=== PATIENT | male | born 1995 | race Caucasian/White ===

== ENCOUNTER 2019-10-06 00:05 | Emergency (ER) | payer SELFPAY ==
--- NOTE | 2019-10-06 00:06 | XR_ITS ---
WS: [id number] Chest 2 views, 10/06/2019 Clinical Data: cp Comparison: PA chest, 12/07/2017. Findings: No nodules, masses or effusions are seen. The heart is normal. The pulmonary vascularity is not increased. No pneumonia or pneumothorax is seen. XR/XR chest 2V* 18113 Impression: Negative chest.
--- NOTE | 2019-10-06 00:06 | ECG_ITS ---
Measurements Intervals [place] Rate: 64 P: 60 RI: 161 QRS: -25 QRSD: 95 T: 45 QT: 363 QTc: 377 SINUS RHYTHM BORDERLINE LEFT AXIS DEVIATION [QRS AXIS < -20] No previous ECG available for comparison Electronically Signed On 10-07-2019 8:59:43 CDT by Adam Rodgers M.D. [id number]
[2019-10-06 00:17] VITALS: BP 145/96; PULSE 71; RESP 16; TEMP 36.6; O2SAT 100; BMI 30.2
--- NOTE | 2019-10-06 01:51 | ED_ITS ---
Entered by April Noyola, acting as scribe for Vasquez Lynch MD HPI - Chest Pain General: Chief Complaint: Chest Pain Stated Complaint: CP Time Seen by Provider: 10/06/19 01:51 Source: patient Mode of arrival: ambulatory Limitations: no limitations History of Present Illness: HPI narrative: 24 yo m came to the er pov for chest pain. Onset was 2 days ago. Pt states that he is having a sharp and dull pain. Pain is located in the center of the chest. No nausea, vomiting or shortness of breath. This has been going on for 2 days. Pt rates his pain as a 7/10. complaint: chest pain Onset (ago): day(s) (2 days ago) Timing of current episode: episodic Prior episodes: No Onset: during rest Pain location: right chest Pain radiation: none Severity: mild Pain scale (0-10): 7 Quality: sharp and dull Relieving factors: rest Exacerbating factors: nothing Associated symptoms: Reports no associated symptoms; Deny abdominal pain, dyspnea, fever(s), nausea or vomiting Risk Factors: Coronary artery disease risk factors: none Review of Systems General: Reports: other (negative unless marked) Const: Denies: fever, chills, body aches or change in appetite Eyes: Denies: blurry vision or eye discomfort ENMT: Denies: throat pain or dental pain Card: Reports: chest pain Resp: Denies: shortness of breath GI: Denies: abdominal pain, nausea, vomiting or diarrhea : Denies: painful urination Musc: Denies: neck pain or back pain Skin/Breast: Denies: rash Neuro: Denies: headache Psych: Denies: depression Vikas/Lymph: Denies: easy bruising All/Imm: Denies: hives PFSH ED PFSH: Medical History Major depressive disorder, recurrent, moderate Post-traumatic stress disorder, unspecified Social History Smoking and tobacco status: current every day smoker cigarettes Packs smoked per day: 1 Smoking risk assessment/counseling performed?: Yes Tobacco counseling given: counseling >3 minutes Physical Exam Const: COMMON NORMALS: no apparent distress, oriented x3 and healthy appearing HENMT: COMMON NORMALS: normocephalic and head/scalp atraumatic HEAD & SCALP: normocephalic and atraumatic Eye: COMMON NORMALS: PERRL and EOMs intact bilaterally PUPIL: Yes PERRL Neck/C-Spine: COMMON NORMALS: full ROM and supple Chest: COMMONS NORMALS: inspection of chest normal OTHER: point tender over rigth chest reproduces his pain Resp: COMMON NORMALS: normal respiratory effort, no retractions, no use of accessory muscles and clear to auscultation bilaterally AUSCULTATION: clear to auscultation bilaterally Cardio: COMMON NORMALS: regular rate, regular rhythm and no murmurs RATE: regular rate RHYTHM: regular rhythm GI: COMMON NORMALS: normal to inspection, nondistended, normoactive bowel sounds, soft to palpation, non-tender and no masses PALPATION: Yes soft Extremity: COMMON NORMALS: normal to inspection and full ROM Neuro: COMMON NORMALS: oriented x3, moves all extremities and no focal motor deficits Psych: COMMON NORMALS: mental status grossly normal, thought process normal and cooperative THOUGHT PROCESS: normal thought process Skin: COMMON NORMALS: no rashes or lesions noted and no wounds GENERAL SKIN EXAM: no rashes or lesions noted Course Vital Signs: Vital signs: Vital Signs Temperature 97.9 F 10/06/19 00:17 Pulse Rate 72 10/06/19 01:52 Respiratory Rate 18 10/06/19 01:52 Blood Pressure 138/93 10/06/19 01:52 Pulse Oximetry 98 10/06/19 01:52 MDM - Chest Pain MDM Narrative: Medical decision making narrative: Patient presents with chest pain that is atypical in nature. He is point tender on his right chest and it reproduces his pain. His pain is likely muscular in nature. He has no risk factors and his EKG and x-ray are normal. We will place him on Naprosyn and he is stable for discharge. He is to follow-up with his primary care doctor in 3 to 5 days and return if worsening. Imaging Data^: CXR: Attestation: I personally reviewed and interpreted this imaging study as follows: My impression: no acute abnormality EKG Data^: EKG 1: Attestation: I personally reviewed and interpreted this EKG as follows: EKG interpretation date: 10/06/19 EKG interpretation time: 00:33 Interpretation: nsr hr [address] or t wave abnormalities qrs 95 qtc 373 Discharge Plan Discharge Patient Disposition: Home, Self-Care Clinical Impression: Chest pain Qualifiers: Chest pain type: unspecified Qualified Code(s): R07.9 - Chest pain, unspecified Condition: Stable Prescriptions: New EC-Naprosyn 500 mg tablet,delayed release (DR/EC) 500 mg PO BID PRN (Reason: pain) Qty: 20 RF: 0 No Action citalopram [Celexa] 10 mg tablet 10 mg PO BID Qty: 60 RF: 2 hydroxyzine HCl 50 mg tablet 50 mg PO .at bed Qty: 30 RF: 2 ropinirole [Requip] 0.25 mg tablet 0.25 mg PO .at bed Qty: 30 RF: 2 Discharge Orders: Discharge Order (Routine); Ordered 10/06/19 Ordered By: Vasquez Lynch Referrals: Herberth Hagen MD [Primary Care Provider] - 4-7 days Discharge Diet: Advance as tolerated Discharge Activity: Resume usual activity Patient Instructions: Chest Pain (ED) Coding Level of Care Code ED Print Washer for g Fwd The documentation recorded by the Dennys canales Stephanie Lyn, accurately reflects the service I personally performed and the decisions made by Syed pelayo Korby, MD
[2019-10-06 01:52] VITALS: BP 138/93; PULSE 72; RESP 18; O2SAT 98
[2019-10-06] MEDS: naproxen 500 mg Tablet PO (02:02)
[2019-10-06 02:23] VITALS: BP 131/76; PULSE 69; RESP 16; O2SAT 97
== END 2019-10-06 02:24 | disposition home or self-care (01) ==
LOC: ER 02:22
PROVIDERS: Emergency Provider Emergency Medicine; PCP Family Medicine
DX: R07.9 Chest pain, unspecified (principal); F17.210 Nicotine dependence, cigarettes, uncomplicated
CPT/HCPCS: 12345; 71046; 93005; 99281; 99283

== ENCOUNTER 2020-06-01 22:18 | Emergency (ER) | payer SELFPAY ==
[2020-06-01 22:22] VITALS: BP 125/80; PULSE 86; RESP 16; TEMP 36.7; O2SAT 98; BMI 30.9
--- NOTE | 2020-06-01 22:41 | W.ED.BACK ---
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 Patient had back problems for the last 10 years. Needs note to be off work due to back pain MD elicited complaint: back pain Pertinent past history: prior back pain Onset (ago): hour(s) Timing: constant Severity: similar to previous episodes Similar Symptoms Previously: Yes Quality: aching Location: lumbar spine Radiation: none Exacerbating factors: movement, sitting upright and walking Relieving factors: immobilization Context: while lifting and turning/twisting Associated symptoms: Reports no associated symptoms; Deny abdominal pain, chills, fever(s), nausea or vomiting Treatments prior to arrival: NSAIDS Review of Systems Const: Denies: fever(s), chills or body aches Eyes: Denies: change in vision or blurry vision ENMT: Denies: throat pain or nasal congestion Card: Denies: chest pain or dyspnea on exertion Resp: Denies: dyspnea, productive cough or non-productive cough GI: Denies: abdominal pain, nausea or vomiting : Denies: difficulty urinating Musc: Reports: back pain; Denies: extremity pain Skin/Breast: Denies: rash Neuro: Denies: headache(s) Psych: Denies: anxiety or depression Vikas/Lymph: Denies: easy bruising PFS ED PFSH: Medical History (Updated 06/01/20 @ 22:40 by ADRIEN Rowland) Major depressive disorder, recurrent, moderate Post-traumatic stress disorder, unspecified Social History Smoking and tobacco status: current every day smoker cigarettes Packs smoked per day: 1 Smoking risk assessment/counseling performed?: Yes Tobacco counseling given: counseling >3 minutes Physical Exam Const: COMMON NORMALS: no acute distress, average body habitus and patient oriented x3 HENMT: COMMON NORMALS: normocephalic HEAD & SCALP: normal to inspection and normocephalic FACE & SINUS: normal facial exam Eye: COMMON NORMALS: conjunctivae normal GENERAL EYE: appearance normal, both eyes and all related structures CONJUNCTIVA: Yes conjunctivae normal Neck/C-Spine: COMMON NORMALS: no JVD Chest: COMMONS NORMALS: normal inspection of the chest Resp: COMMON NORMALS: normal respiratory effort Cardio: COMMON NORMALS: no JVD GI: COMMON NORMALS: Normal to inspection, nondistended, normoactive bowel sounds present Back/Pelvis: LUMBAR SPINE/LOWER BACK: Yes straight leg raise positive right and Yes straight leg raise positive left Extremity: COMMON NORMALS: normal to inspection and full ROM Neuro: COMMON NORMALS: patient oriented x3 Course Vital Signs: Vital signs: Vital Signs Temperature 98.1 F 06/01/20 22:22 Pulse Rate 86 06/01/20 22:22 Respiratory Rate 16 06/01/20 22:22 Blood Pressure 125/80 06/01/20 22:22 Pulse Oximetry 98 06/01/20 22:22 Discharge Plan Discharge Patient Disposition: Home Clinical Impression: Lumbar radiculopathy Condition: Stable Prescriptions: New prednisone 20 mg tablet 10 mg PO DAILY 10 Days Qty: 10 RF: 0 tramadol 50 mg tablet 50 mg PO TID PRN (Reason: pain) Qty: 10 RF: 0 No Action citalopram [Celexa] 10 mg tablet 10 mg PO BID Qty: 60 RF: 2 hydroxyzine HCl 50 mg tablet 50 mg PO .at bed Qty: 30 RF: 2 ropinirole [Requip] 0.25 mg tablet 0.25 mg PO .at bed Qty: 30 RF: 2 EC-Naprosyn 500 mg tablet,delayed release (DR/EC) 500 mg PO BID PRN (Reason: pain) Qty: 20 RF: 0 Discharge Orders: Discharge Order (Routine); Ordered 06/01/20 Ordered By: Braden Vega Discharge Diet: Usual diet Discharge Activity: Increase activity as tolerated Patient Instructions: Low Back Strain (ED) Activity Restrictions/Additional Instructions: Follow-up with medical provider as directed. Take medications as prescribed. Return to the ER or your medical provider if condition worsens. Please read and understand discharge instructions. If any questions ask please. Exercise as described Stand Alone Forms: Work/School Release Coding Level of Care Code ED Supervisor Pyrotechnic Loading for Oscar Dill
[2020-06-01] MEDS: TRAMadol 50 mg Tablet PO (22:55)
[2020-06-01] MEDS: predniSONE 20 mg Tablet 60 MG PO (22:55)
[2020-06-01 23:08] VITALS: BP 125/80; PULSE 86; RESP 18; O2SAT 98
--- NOTE | 2020-06-01 23:30 | PC.NURSE ---
This RN agrees with shop assistant assessment
== END 2020-06-01 23:30 | disposition home or self-care (01) ==
PROVIDERS: Emergency Provider Nurse Practitioner Family
DX: M54.16 Radiculopathy, lumbar region (principal); F17.210 Nicotine dependence, cigarettes, uncomplicated
CPT/HCPCS: 12345; 99281; 99283; J7512

== ENCOUNTER 2020-06-26 22:12 | Emergency (ER) | payer SELFPAY ==
[2020-06-26 22:32] VITALS: BP 134/83; PULSE 71; RESP 14; TEMP 36.7; O2SAT 99; BMI 30.4
[2020-06-26 22:50] VITALS: BP 129/70; PULSE 66; RESP 17; O2SAT 98
--- NOTE | 2020-06-26 23:36 | ED_ITS ---
HPI - Back Pain/Injury General: Chief Complaint: Back Pain/Injury Stated Complaint: FELL OFF BED TODAY/BACK PAIN Time Seen by Provider: 06/26/20 22:53 History of Present Illness: HPI Narrative: Patient is a 25-year-old male comes to the ED with lower back pain. Patient says earlier today he fell off his bed and landed on his lower back. Pain is located on lower left lumbar region. It hurts to do any movement. Patient has not taken any pain meds before coming to the ED. Denies any numbness or weakness to lower extremities, pain radiating down lower extremities, bladder or bowel incontinence, pelvic anesthesia. Associated symptoms: Deny abdominal pain, chills, dysuria, fatigue, fever(s), hematuria, nausea or vomiting Review of Systems Const: Denies: fever(s), chills or fatigue Eyes: Denies: change in vision or eye discomfort ENMT: Denies: throat pain, odynophagia, nasal discharge or nasal congestion Card: Denies: chest pain, palpitations, edema, swelling of feet/ankles, dyspnea on exertion or orthopnea Resp: Denies: dyspnea, productive cough or non-productive cough GI: Denies: abdominal pain, nausea, vomiting, diarrhea, constipation or hematochezia : Denies: flank pain, difficulty urinating, dysuria or hematuria Musc: Reports: back pain; Denies: neck pain or extremity swelling Skin/Breast: Denies: rash or new lesions Neuro: Denies: headache(s), numbness in extremities or weakness in extremities [facility] [place] ED PFSH: Medical History Major depressive disorder, recurrent, moderate Post-traumatic stress disorder, unspecified Social History Smoking and tobacco status: current every day smoker cigarettes Packs smoked per day: 1 Smoking risk assessment/counseling performed?: Yes Tobacco counseling given: counseling >3 minutes Physical Exam Const: COMMON NORMALS: no acute distress, patient oriented x3 and alert GENERAL APPEARANCE: cooperative and comfortable HENMT: COMMON NORMALS: normocephalic HEAD & SCALP: normocephalic MOUTH: Normal oral and palatal mucosa present THROAT: posterior oropharynx normal and uvula midline Eye: COMMON NORMALS: Equal, round and reactive pupils present PUPIL: Yes Equal, round and reactive pupils present Neck/C-Spine: COMMON NORMALS: supple GENERAL: Yes normal visual inspection Resp: COMMON NORMALS: normal respiratory effort, No retractions, No use of accessory muscles and clear to auscultation bilaterally AUSCULTATION: clear to auscultation bilaterally Cardio: COMMON NORMALS: regular rate, regular rhythm, S1 normal heart sound present, S2 normal heart sound present, No gallops present (Cardio), No clicks present (Cardio), No murmurs present (Cardio) and Peripheral pulses 2+ throughout RATE: regular rate RHYTHM: regular rhythm HEART SOUNDS: S1 normal heart sound present and S2 normal heart sound present PERIPHERAL PULSES: Peripheral pulses 2+ throughout GI: COMMON NORMALS: Normal to inspection, nondistended, normoactive bowel sounds present, Soft to palpation, non-tender and no masses PALPATION: Yes Soft to palpation : COMMON NORMALS: Yes no CVA tenderness BLADDER/KIDNEY EXAM: Yes no CVA tenderness Back/Pelvis: COMMON NORMALS: no CVA tenderness LUMBAR SPINE/LOWER BACK: Yes pain with ROM, No lumbar spinal tenderness and Yes paraspinal muscle tenderness Lumbar paraspinal muscle tenderness: left left lumbar paraspinal muscle tenderness: L2 and L3 Extremity: COMMON NORMALS: normal to inspection and no pedal edema Neuro: COMMON NORMALS: patient oriented x3 and moves all extremities SENSORIUM/ORIENTATION: Yes alert Skin: GENERAL SKIN EXAM: dry skin Course Vital Signs: Vital signs: Vital Signs Temperature 98.1 F 06/26/20 22:32 Pulse Rate 66 06/26/20 22:50 Respiratory Rate 17 06/26/20 22:50 Blood Pressure 129/70 06/26/20 22:50 Pulse Oximetry 98 06/26/20 22:50 MDM - Back Pain/Injury MDM Narrative: Medical decision making narrative: Patient is a 25-year-old male comes to the ED with lower back pain. Exam finding showed some left lumbar paraspinal muscle. No cauda equina symptoms. Patient is unlikely pain rating or extremities. Patient was given a shot of Toradol and Norflex while here in the ED. He was discharged with lower back pain and sent home with a prescription for ibuprofen 800 mg and methocarbamol. Return to ED precautions given. Follow-up with PCP in 7 to 10 days for reevaluation. Patient understood agree with plan. Discharge Plan Discharge Patient Disposition: Home Clinical Impression: Lumbar back pain Condition: Stable Prescriptions: New methocarbamol 750 mg tablet 750 mg PO Q8H Qty: 20 RF: 0 ibuprofen 800 mg tablet 800 mg PO Q8H PRN (Reason: pain) Qty: 20 RF: 0 No Action citalopram [Celexa] 10 mg tablet 10 mg PO BID Qty: 60 RF: 2 hydroxyzine HCl 50 mg tablet 50 mg PO .at bed Qty: 30 RF: 2 ropinirole [Requip] 0.25 mg tablet 0.25 mg PO .at bed Qty: 30 RF: 2 EC-Naprosyn 500 mg tablet,delayed release (DR/EC) 500 mg PO BID PRN (Reason: pain) Qty: 20 RF: 0 tramadol 50 mg tablet 50 mg PO TID PRN (Reason: pain) Qty: 10 RF: 0 Discharge Orders: Discharge Order (Routine); Ordered 06/26/20 Ordered By: Walter Newell Discharge Diet: Regular Discharge Activity: Increase activity as tolerated Patient Instructions: Acute Low Back Pain (ED) Activity Restrictions/Additional Instructions: Follow-up with medical provider as directed in 7 to 10 days. Take medications as prescribed. Remember that methocarbamol as a muscle relaxer and can cause drowsiness so take at night before bed. Stretch lower back apply cold or heat to help with symptoms. Return to the ER or your medical provider if condition worsens. Please read and understand discharge instructions. If any questions, please ask. Stand Alone Forms: Work/School Release Coding Level of Care Code ED Entry Level Account Executive for Oscar Fwirving Exam Comprehensive
[2020-06-26] MEDS: ketorolac 60 mg/2 mL INJ IM (23:53)
[2020-06-26] MEDS: orphenadrine 30 mg/mL Inj 2 mL 60 MG IM (23:53)
== END 2020-06-26 23:54 | disposition home or self-care (01) ==
PROVIDERS: Emergency Provider Physician Assistant
DX: M54.5 Low back pain (principal); F17.210 Nicotine dependence, cigarettes, uncomplicated
CPT/HCPCS: 12345; 96372; 99281; 99283; J1885; J2360

== ENCOUNTER 2020-09-24 17:16 | Emergency (ER) | payer SELFPAY ==
[2020-09-24 17:21] VITALS: BP 158/92; PULSE 79; RESP 18; TEMP 36.7; O2SAT 98; BMI 29.8
[2020-09-24] MEDS: sulfamethoxazole-trimeth DS 160-800 mg Tablet 1 TAB PO (20:40)
[2020-09-24] MEDS: erythromycin Op Oint 1 gm 1 APPLIC EYE-BOTH (20:40)
[2020-09-24 20:46] VITALS: BP 142/85; PULSE 71; RESP 17; O2SAT 99
--- NOTE | 2020-09-25 01:48 | W.ED.EYEPROB ---
HPI - Eye Problem General: Chief complaint: Eye Problems Stated complaint: LEFT EYE PAIN Time Seen by Provider: 09/24/20 19:23 History of Present Illness: HPI Narrative: 25-year-old male with a painful swollen area to his right lower eyelid that is red. He noticed a couple of days ago. Pain is gotten worse with swelling worsening as well. He has minimal blurry vision. chief complaint: eye pain and eye redness Onset (ago): day(s) Onset description: sudden Duration: constant Location: right eye Eye Symptoms: redness and pain Mechanism: none Severity: moderate If Pain, Quality: sharp Associated symptoms: Reports no associated symptoms; Denies fever(s) or vomiting Review of Systems Const: Denies: fever(s) Card: Denies: chest pain Resp: Denies: dyspnea GI: Denies: vomiting PFSH ED PFSH: Medical History (Updated 09/24/20 @ 20:23 by Mohit Guerrero DO) Major depressive disorder, recurrent, moderate Post-traumatic stress disorder, unspecified Social History Smoking and tobacco status: current every day smoker cigarettes Packs smoked per day: 1 Smoking risk assessment/counseling performed?: Yes Tobacco counseling given: counseling >3 minutes Physical Exam Const: COMMON NORMALS: no acute distress and well nourished EXAM LIMITATIONS: altered mental status and behavioral limitations HENMT: COMMON NORMALS: normocephalic HEAD & SCALP: normocephalic FACE & SINUS: sinuses nontender Eye: COMMON NORMALS: Equal, round and reactive pupils present and EOMs intact bilaterally GENERAL EYE: appearance normal, both eyes and all related structures and normal light reflex VISUAL ACUITY: Yes acuity normal VISUAL NOLAN: Yes peripheral vision loss ALIGNMENT: Yes alignment normal EYELID: eyelid abnormality right lower eyelid (Hordeolum present, mild redness surrounding) SCLERA: sclerae normal CORNEA: Yes corneas normal PUPIL: Yes Equal, round and reactive pupils present DIRECT OPHTHALMOSCOPY: Yes normal light reflex EYE IMAGES: 1. Resp: COMMON NORMALS: normal respiratory effort, No retractions and No use of accessory muscles Cardio: COMMON NORMALS: regular rate RATE: regular rate Course Vital Signs: Vital signs: Vital Signs Temperature 98.1 F 09/24/20 17:21 Pulse Rate 71 09/24/20 20:46 Respiratory Rate 17 09/24/20 20:46 Blood Pressure 142/85 09/24/20 20:46 Pulse Oximetry 99 09/24/20 20:46 Discharge Plan Discharge Patient Disposition: Home Clinical Impression: Hordeolum externum (stye) Qualifiers: Laterality: right Eyelid: lower Qualified Code(s): H00.012 - Hordeolum externum right lower eyelid Condition: Stable Prescriptions: New Bactrim DS 800-160 mg tablet 1 tab PO DAILY 5 Days Qty: 10 RF: 0 No Action hydroxyzine HCl 50 mg tablet 50 mg PO .at bed Qty: 30 RF: 2 citalopram [Celexa] 10 mg tablet 10 mg PO BID Qty: 60 RF: 2 ropinirole 0.5 mg tablet 0.5 mg PO .HS Qty: 30 RF: 2 methocarbamol 750 mg tablet 750 mg PO Q8H Qty: 20 RF: 0 ibuprofen 800 mg tablet 800 mg PO Q8H PRN (Reason: pain) Qty: 20 RF: 0 EC-Naprosyn 500 mg tablet,delayed release (DR/EC) 500 mg PO BID PRN (Reason: pain) Qty: 20 RF: 0 tramadol 50 mg tablet 50 mg PO TID PRN (Reason: pain) Qty: 10 RF: 0 Discharge Orders: Discharge ED (Routine); Ordered 09/24/20 Ordered By: Mohit Guerrero Discharge Diet: Usual diet Discharge Activity: Resume usual activity Patient Instructions: Janice (ED) Activity Restrictions/Additional Instructions: Antibiotic as directed. Use the ointment twice daily. Return for spreading swelling, pain, redness, blurry vision despite treatment. Stand Alone Forms: Work/School Release Coding Level of Care Code ED Foreign Banknote Teller Trader for Oscar Dill
== END 2020-09-24 20:46 | disposition home or self-care (01) ==
PROVIDERS: Emergency Provider Emergency Medicine
DX: H00.012 Hordeolum externum right lower eyelid (principal); F17.210 Nicotine dependence, cigarettes, uncomplicated
CPT/HCPCS: 99283

== ENCOUNTER 2022-01-18 23:00 | Emergency (ER) | payer SELFPAY ==
[2022-01-18 23:49] VITALS: BP 135/90; PULSE 69; RESP 18; TEMP 36.7; O2SAT 97; BMI 32.5
[2022-01-19] MEDS: doxycycline 100 mg Tablet PO (01:18)
--- NOTE | 2022-01-19 01:27 | ED_ITS ---
HPI - Dental/Oral General: Chief complaint: Dental/Oral Stated complaint: tooth pain Time Seen by Provider: 01/19/22 01:07 History of Present Illness: 26-year-old male patient comes in today for complaints of pain to the right lower jaw along the first premolar. Patient appears well. Patient appears no acute distress. Patient reports pain for the last 3 days. Patient had missed work today due to his discomfort. Patient denies any nausea vomiting. Review of Systems General: Reports: 10 or more systems reviewed and unremarkable except in HPI and below ENMT: Reports: dental pain PFSH ED PFSH: Medical History (Updated 01/19/22 @ 01:15 by ADRIEN Harrison) Major depressive disorder, recurrent, moderate Post-traumatic stress disorder, unspecified Restless legs Social History Smoking and tobacco status: current every day smoker cigarettes Packs smoked per day: 1 Smoking risk assessment/counseling performed?: Yes Tobacco counseling given: counseling >3 minutes Physical Exam Const: COMMON NORMALS: alert HENMT: TEETH & GINGIVA: Yes abnormal tooth and associated gingiva (Erythema with abscess to the first premolar outer gingiva, significant gilberto) THROAT: posterior oropharynx normal Neck/C-Spine: COMMON NORMALS: full ROM Resp: COMMON NORMALS: normal respiratory effort and clear to auscultation bilaterally AUSCULTATION: clear to auscultation bilaterally Cardio: COMMON NORMALS: regular rate and regular rhythm RATE: regular rate RHYTHM: regular rhythm Neuro: SENSORIUM/ORIENTATION: Yes alert Skin: COMMON NORMALS: no rashes or lesions noted GENERAL SKIN EXAM: no rashes or lesions noted Course Vital Signs: Vital signs: Vital Signs Temperature 98.0 F 01/18/22 23:49 Pulse Rate 69 01/18/22 23:49 Respiratory Rate 18 01/18/22 23:49 Blood Pressure 135/90 01/18/22 23:49 Pulse Oximetry 97 01/18/22 23:49 [facility] - Dental/Oral Medical Decision Making 26-year-old male patient comes in today with right lower jaw pain. On exam patient has some erythema and tenderness to the gingiva with some mild swelling suggestive of a gingival abscess. Patient also has significant periodontal disease. Differential diagnosis includes toothache, gingivitis, dental abscess. We will put patient on doxycycline and recommended good oral care and follow-up with dentist for definitive care with a deep cleaning and further treatment. Patient reported understanding Discharge Plan Discharge Patient Disposition: Home Clinical Impression: Toothache, Chronic periodontal disease Condition: Stable Prescriptions: New doxycycline monohydrate 100 mg capsule 100 mg PO BID 7 Days Qty: 14 0RF No Action tramadol 50 mg tablet 50 mg PO TID PRN (Reason: pain) 0RF Label Comments: Pt states that he is no longer taking this medication methocarbamol 750 mg tablet 750 mg PO Q8H 0RF Label Comments: Pt states that he is no longer taking this medication citalopram [Celexa] 10 mg tablet 10 mg PO BID Qty: 60 2RF hydroxyzine HCl 50 mg tablet 50 mg PO .at bed Qty: 30 2RF Rx Instructions: 1/2 to 1 tab at bed ropinirole 0.5 mg tablet 0.5 mg PO .HS Qty: 30 2RF ibuprofen 800 mg tablet 800 mg PO Q8H PRN (Reason: pain) Qty: 20 0RF EC-Naprosyn 500 mg tablet,delayed release (DR/EC) 500 mg PO BID PRN (Reason: pain) Qty: 20 0RF Discharge Orders: Discharge ED (Routine); Ordered 01/19/22 Ordered By: Celestino Licea Discharge Diet: Usual diet Discharge Activity: Increase activity as tolerated Patient Instructions: Toothache (ED), Gingivostomatitis (ED) Activity Restrictions/Additional Instructions: Good oral care, use Listerine twice a day along with regular brushing. Take antibiotics as directed. Follow-up with dentist for definitive care. Stand Alone Forms: Work/School Release Coding Level of Care Code ED Exceptional Student Education Aide for Oscar Dill
[2022-01-19 01:33] VITALS: BP 140/80; PULSE 75; RESP 18; O2SAT 98
== END 2022-01-19 01:34 | disposition home or self-care (01) ==
PROVIDERS: Emergency Provider Nurse Practitioner Family
DX: K08.89 Other specified disorders of teeth and supporting structures (principal); K05.6 Periodontal disease, unspecified; F17.210 Nicotine dependence, cigarettes, uncomplicated
CPT/HCPCS: 99283